=== PATIENT | female | born 1985 | race Caucasian/White ===

== ENCOUNTER 2020-12-06 19:11 | Emergency (ER) | payer OTHER, MEDICAID ==
[~2020-12-06] VITALS: Ht 175.3 cm; Wt 61.2 kg
[~2020-12-06 19:11] MED LIST: LANOLIN56 GM TOP; LEVOTHYROXINE0.05 MG PO; PRENATAL COMPL1 EACH PO; PRENATAL PO; TUCKS1 EAC1 TOP
[2020-12-06] MEDS ORDERED: CENTANY30 GM TOP (19:52)
[2020-12-06] MEDS ORDERED: DOXYCYCLINE 10100 MG PO (19:52)
[2020-12-06] MEDS ORDERED: IBUPROFEN 600600 M1 PO (19:52)
[2020-12-06] MEDS ORDERED: NORCO5 PO (19:52)
[2020-12-06 20:26] VITALS: BP 149/84
== END 2020-12-06 20:27 | disposition home or self-care (01) ==
LOC: M.ERS 19:11
DX: L02.412 Cutaneous abscess of left axilla (principal); L73.2 Hidradenitis suppurativa